=== PATIENT | male | born 1975 | race Caucasian/White ===

== ENCOUNTER 2018-07-07 13:45 | Inpatient (IN) | payer OTHER ==
[~2018-07-07] VITALS: Ht 165.1 cm; Wt 68.0 kg
--- NOTE | 2018-07-07 14:06 | NUR ---
SE RECIBE PTE ALERTA Y ORIENTADO X3,REFIERE DOLOR ABDOMINAL SE LE IRRADIA HACIA EL LADO DERECHO,DESDE ANOCHE.
--- NOTE | 2018-07-07 14:44 | NUR ---
MS ORTA ORIENTA A PACIENTE SOBRE ORDENES MEDICAS. ADMINISTRA MEDICAMENTOS, CANALIZA PACIENTE Y COLECTA MUESTRAS DE LABORATORIO ORDENADAS BAJO MEDIDAS ASEPTICAS. PENDIENTE A RESULTADOS DE LABORATORIO Y CT SCAN PARA RE-EVALUACION MEDICA.
--- NOTE | 2018-07-07 14:49 | NUR ---
SE LLEVAN A PTE PARA ESTUDIO DE CT PO. PTE NO SE [place] CONTRASTE, TECNICO DE CT REALIZA ESTUDIO SIN PTE HABERSE TOMADO EL CONTRASTE PO. SE NOTIFICA A MEDICO EN TUR[place].
--- NOTE | 2018-07-07 15:37 | NUR ---
CONSULTA PACIENTE CON DAVIDUEULALIA GLORIA
--- NOTE | 2018-07-07 18:03 | NUR ---
SE ORIENTA PACIENTE SOBRE ADMISION A JOB DE ORPERACIONES,PACIENTE REFIERE ENTENDER. SE PROVEE VESTIMENTA DE OR.
[2018-07-08] MEDS ORDERED: PERCOCET 5-3251 EACH PO (18:21)
== END 2018-07-08 18:52 | disposition home or self-care (01) | DRG 343 ==
LOC: ER 13:45 → SURH 17:28 → SEC-K 17:28 → O/R 20:01 → SURH 20:06
PROVIDERS: ADMIT Surgery
PROC: BW21ZZZ Computerized Tomography (CT Scan) of Abdomen and Pelvis (ICD-10-PCS; 2018-07-07)
PROC: 0DTJ4ZZ Resection of Appendix, Percutaneous Endoscopic Approach (ICD-10-PCS; principal; 2018-07-07 17:00)
DX: K35.890 Other acute appendicitis without perforation or gangrene (principal)